=== PATIENT | female | born 1970 | race Caucasian/White ===

== ENCOUNTER 2017-07-19 15:10 | Outpatient (CLI) | payer OTHER ==
--- NOTE | 2017-07-20 13:54 | CT Report ---
CT ABDOMEN AND PELVIS WITHOUT CONTRAST: 07/19/2017 CLINICAL INDICATION: Neuropathic bladder, history of infections, pain. TECHNIQUE: Axial CT images of the abdomen and pelvis were obtained without oral or intravenous contrast. In accordance with CT protocol optimization, one or more of the following dose reduction techniques were utilized for this exam: Automated exposure control, adjustment of mA and/or KV based on patient size, or use of iterative reconstructive technique. COMPARISON: No previous CT is available for comparison FINDINGS Limited evaluation of the lung bases demonstrates a calcified granuloma at the left base. ABDOMEN: The liver, spleen, pancreas and adrenal glands appear unremarkable, allowing for the lack of contrast material. The gallbladder is not dilated. The right kidney demonstrates moderate hydronephrosis, with a 1.9 x 1.2 cm calculus in the right ureteropelvic junction. Multiple smaller calculi are seen in the right calices. The left kidney demonstrates multiple calculi, with the largest, in the lower pole, measuring 1.4 x 0.9 cm. No left hydronephrosis is seen. No bowel dilatation, free gas, or free fluid is present. No abdominal adenopathy is present. PELVIS: An IUD is incidentally noted in the uterus. Otherwise, the pelvic organs appear unremarkable. No adenopathy or free fluid is present. No distal hydroureter or ureterolithiasis is appreciated. Osseous structures demonstrate degenerative changes. IMPRESSION: A 1.9 X 1.2 CM RIGHT URETEROPELVIC JUNCTION STONE, PRODUCING MODERATE RIGHT HYDRONEPHROSIS. TD: 07/19/2017 15:42 [facility]
== END 2017-07-19 15:11 | disposition home or self-care (01) ==
LOC: DI 15:10
PROVIDERS: ATTEND Naturopath
DX: N13.2 Hydronephrosis with renal and ureteral calculous obstruction (principal)
CPT/HCPCS: 74176

== ENCOUNTER 2018-09-14 15:09 | Outpatient (CLI) | payer OTHER ==
--- NOTE | 2018-09-15 07:34 | Ultrasound Report ---
Reason: URINARY TRACT INFECTION, PERSONAL HISTORY OF URINA Procedure Date: 09/14/2018 Accession Number: [id number] / [id number] Procedure: US - Retroperitoneal CPT Code: FULL RESULT: EXAM: RENAL ULTRASOUND EXAM DATE: 09/14/2018 04:11 PM. CLINICAL HISTORY: Urinary tract infection. History of urinary tract stones. COMPARISON: 07/19/2017. TECHNIQUE: Real-time scanning was performed with static images obtained. FINDINGS: Right Kidney: 10.7 x 3.9 x 5.7 cm. No right renal mass. Mild right hydronephrosis. Stone seen on the prior CT not visible with ultrasound. Left Kidney: 10.2 x 4.6 x 4.5 cm. Multiple left-sided renal stones are noted. Largest stone is in the inferior left kidney measuring 1.3 x 0.8 x 0.9 cm. No left renal mass. Mild left hydronephrosis. Bladder: Bilateral jets seen. The prevoid bladder volume was 539 cc. The postvoid bladder volume was 57.9 cc. Small 0.8 x 0.4 cm lobulation extending from the posterior bladder wall. No internal vascularity is noted. Findings appear to be separate from the ureterovesicle junction. No bladder stones. Other: None. IMPRESSION: 1. Mild bilateral hydronephrosis. No renal mass. 2. No right-sided renal stone seen on ultrasound. Multiple left-sided renal stones. 3. No focal bladder mass or stone. Avascular 0.8 x 0.4 cm posterior bladder wall lobulation. No internal vascularity. This appears to be separate from the ureterovesicle junction. Features appear benign. Appearance is nonspecific. Correlate for hematuria. If present, patient may benefit from cystoscopy. [facility]
== END 2018-09-14 15:10 | disposition home or self-care (01) ==
LOC: DI 15:09
PROVIDERS: ATTEND Naturopath
DX: N39.0 Urinary tract infection, site not specified (principal); N13.30 Unspecified hydronephrosis; N20.0 Calculus of kidney; Z87.442 Personal history of urinary calculi
CPT/HCPCS: 76770

== ENCOUNTER 2022-02-10 08:49 | Outpatient (CLI) | payer BC ==
--- NOTE | 2022-02-11 09:13 | Mammography Report ---
BILATERAL DIGITAL SCREENING MAMMOGRAM 3D/2D WITH EXAGGERATED CC: 02/10/2022 CLINICAL: Routine screening. Comparison is made to exam dated: 05/14/2011 mammogram - [facility], [place]. There are scattered areas of fibroglandular density in both breasts (category b / 25%-50% glandular t issue). No significant masses, calcifications, or other findings are seen in either breast. There has been no significant interval change. IMPRESSION: NEGATIVE There is no mammographic evidence of malignancy. A 1 year screening mammogram is recommended. Based on the Tyrer Cuzick model (a risk assessment model) the patients lifetime risk is 8.1% and her 10 year risk is 2.1%. According to the ACR, ACS, and NCCN guidelines, an annual breast MRI exam terry g with mammogram is recommended if the patients lifetime risk is 20% or greater. This exam was interpreted at Station ID: [id number]. NOTE: For mammograms, a report in lay terms will be sent to the patient. Approximately 15% of breast malignancies will not be visualized mammographically. In the management of a palpable breast mass, a negative mammogram must not discourage biopsy of a clinically suspicious lesion. Electronically Signed By: Val [email or web address]:02/11/2022 08:36:14 ACR BI-RADS Category 1: Negative 3341F PARENCHYMAL PATTERN: (A) - The breast(s) demonstrate(s) scattered fibroglandular densities. BI-RADS CATEGORY: (1) - 1 RECOMMENDATION: (ANNUAL) - Recommend routine annual screening mammography. [id number] 1 year screening LATERALITY: (B)
== END 2022-02-10 08:50 | disposition home or self-care (01) ==
LOC: DI.S 08:49
PROVIDERS: ATTEND Naturopath
DX: Z12.31 Encounter for screening mammogram for malignant neoplasm of breast (principal)

== ENCOUNTER 2022-07-09 08:00 | Outpatient (CLI) | payer BC | END 2022-07-09 23:59 | disposition home or self-care (01) | LOC: LAB 08:00 | PROVIDERS: ATTEND Physician Assistant | DX: N10 Acute pyelonephritis (principal) | CPT/HCPCS: 87077; 87086; 87181 ==